=== PATIENT | male | born 1980 | race Caucasian/White ===

== ENCOUNTER 2020-03-05 02:08 | Emergency (ER) | payer SELFPAY ==
[~2020-03-05] VITALS: Ht 172.7 cm; Wt 69.4 kg
[2020-03-05 02:16] VITALS: BP 115/73
--- NOTE | 2020-03-05 02:40 | NUR ---
THIS IS A 39Y M THAT COMES IN FOR HERNIA PAIN. PT HAS A R INGUINAL HERNIA AND STS HE HAS HAD THIS FOR QUITE SOME TIME. 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 PT THEN CONITUES TO ELABORATE METH DOES NOT AGREE WITH HIS BODY BUT ALLOWS HIM TO HEAR THE CREATURES INSIDE OF HIM MOVE ABOUT. PT CONNECTED TO MONITORING VSS NADN RESTING ON [employer] WATCHING [place] AT THIS TIME
--- NOTE | 2020-03-05 03:32 | NUR ---
Patient/Caregiver given discharge instructions and they have confirmed that they understand the instructions. Patient ambulatory with steady gait.
== END 2020-03-05 03:33 | disposition home or self-care (01) ==
LOC: ED 03:30
DX: K40.91 Unilateral inguinal hernia, without obstruction or gangrene, recurrent (principal); F15.159 Other stimulant abuse with stimulant-induced psychotic disorder, unspecified; F15.129 Other stimulant abuse with intoxication, unspecified; F10.129 Alcohol abuse with intoxication, unspecified; Z72.9 Problem related to lifestyle, unspecified; Y90.9 Presence of alcohol in blood, level not specified
CPT/HCPCS: 99281